=== PATIENT | male | born 1960 | race Asian ===

== ENCOUNTER 2021-11-08 17:19 | Inpatient (IN) | payer MEDICARE, MEDICAID ==
[~2021-11-08] VITALS: Ht 167.6 cm; Wt 79.4 kg
[2021-11-08 20:06] LABS: BASOPHILS % (AUTO) 0.1 % (0.0-2.0); EOSINOPHILS % (AUTO) 0.1 % (1.0-6.0); HEMATOCRIT 38.6 % (41-53); HEMOGLOBIN 12.8 g/dL (13.5-17.5); LYMPHOCYTES # (AUTO) 0.4 K/uL (1.0-4.8); LYMPHOCYTES % (AUTO) 4.3 % (22.0-44.0); MEAN CORPUSCULAR HEMOGLOBIN 27.2 pg (26.0-34.0); MEAN CORPUSCULAR HGB CONC 33.2 G/dL (31.0-37.0); MEAN CORPUSCULAR VOLUME 82 fL (80-100); MONOCYTES # (AUTO) 0.6 K/uL (0.1-1.0); MONOCYTES % (AUTO) 6.2 % (2.0-9.0); NEUTROPHILS # (AUTO) 8.4 K/uL (1.8-7.7); PLATELET COUNT (AUTO) 202 K/uL (150-450); RED CELL DISTRIBUTION WIDTH 18.8 % (11.5-14.5)
[2021-11-08 20:16] LABS: NEUTROPHILS % (AUTO) 89.3 % (40.0-70.0)
[2021-11-08 20:18] LABS: CALCIUM, TOTAL 8.3 mg/dL (8.8-10.5); CREATININE 9.48 mg/dL (0.60-1.30); POTASSIUM 5.5 mmol/L (3.5-5.1)
[2021-11-08 20:24] LABS: INFLUENZA TYPE A NEGATIVE FOR TYPE A (NEGATIVE); INFLUENZA TYPE B NEGATIVE FOR TYPE B (NEGATIVE)
[2021-11-08 20:26] LABS: LACTIC ACID 1.5 mmol/L (0.4-2.0)
[2021-11-08] MEDS ORDERED: ONDANSETRON HCL 4 MG/2 ML VIAL IVP ONE (20:30)
[2021-11-08 20:36] LABS: D-DIMER 1.05 mg/L FEU (0.00-0.50)
[2021-11-08] MEDS ORDERED: ACETAMINOPHEN 1000 MG/ISO-OSM 100 ML IV ONE (20:45)
[2021-11-08 20:58] LABS: ALBUMIN 4.3 g/dL (3.4-5.0); BILIRUBIN,TOTAL 0.5 mg/dL (0.1-1.0); C-REACTIVE PROTEIN QUANT 6.09 mg/dL (0.00-0.30); TOTAL PROTEIN, SERUM 10.2 g/dL (6.4-8.2)
[2021-11-08] MEDS ORDERED: SODIUM POLYSTYRENE SULFONATE 15 GM/60 ML SUSPENSION BOTTLE PO ONE (21:45)
[2021-11-08] MEDS ORDERED: SODIUM CHLORIDE 0.9% 500 ML IV ONE (22:45)
[2021-11-09] VITALS: BP 95/51
[2021-11-09] MEDS ORDERED: IOHEXOL 350 MG/ML 100 ML VIAL ONE (00:14)
[2021-11-09] MEDS: HEPARIN SODIUM,PORCINE 5,000 UNITS/ML VIAL SQ SCH ×4 (02:05→23:43)
[2021-11-09] MEDS: ONDANSETRON HCL 4 MG/2 ML VIAL IVP PRN ×4 (02:26→23:44)
[2021-11-09] MEDS ORDERED: INFLUENZA VIRUS VACCINE QVS 2021-22 (6MO+)/PF 60 MCG/0.5 ML SYRINGE IM. ONE (03:30)
[2021-11-09 04:00] VITALS: BP 101/53
[2021-11-09 07:51] LABS: BASOPHILS % (AUTO) 0.3 % (0.0-2.0); EOSINOPHILS % (AUTO) 0 % (1.0-6.0); HEMATOCRIT 32.5 % (41-53); HEMOGLOBIN 10.9 g/dL (13.5-17.5); LYMPHOCYTES # (AUTO) 0.8 K/uL (1.0-4.8); LYMPHOCYTES % (AUTO) 10.2 % (22.0-44.0); MEAN CORPUSCULAR HGB CONC 33.5 G/dL (31.0-37.0); MEAN CORPUSCULAR VOLUME 83 fL (80-100); MONOCYTES # (AUTO) 0.7 K/uL (0.1-1.0); MONOCYTES % (AUTO) 9.6 % (2.0-9.0); NEUTROPHILS % (AUTO) 79.9 % (40.0-70.0); PLATELET COUNT (AUTO) 176 K/uL (150-450); RED CELL DISTRIBUTION WIDTH 18.8 % (11.5-14.5)
[2021-11-09 08:00] VITALS: BP 104/68
[2021-11-09 08:02] LABS: CREATININE 11.13 mg/dL (0.60-1.30); MAGNESIUM 2.3 mg/dL (1.80-2.40); POTASSIUM 4.7 mmol/L (3.5-5.1)
[2021-11-09] MEDS: ACETAMINOPHEN 325 MG TABLET PO PRN ×3 (10:40→20:42)
[2021-11-09 12:00] VITALS: BP 115/65
[2021-11-09] MEDS ORDERED: ALBUTEROL SULFATE HFA 90 MCG/PUFF 8 GM INHALER IH PRN (15:00)
[2021-11-09 15:29] VITALS: BP 122/71
[2021-11-09] MEDS ORDERED: REMDESIVIR 200 MG in SODIUM CHLORIDE 0.9% 250 ML IV ONE (17:00)
[2021-11-09] MEDS ORDERED: SODIUM CHLORIDE 0.9% 250 ML IV ONE (17:24)
[2021-11-09 19:59] VITALS: BP 125/70
[2021-11-09] MEDS: ALBUTEROL SULFATE HFA 90 MCG/PUFF 8 GM INHALER IH SCH (20:42)
[2021-11-09] MEDS: DOCUSATE SODIUM 100 MG/10 ML LIQUID UDCUP PO SCH (20:43)
[2021-11-09] MEDS ORDERED: SIMETHICONE 80 MG CHEWABLE TABLET CHEW ONE (21:15)
[2021-11-10] VITALS (14 sets, daily range): BP systolic 98–169; BP diastolic 55–99
[2021-11-10] MEDS: ACETAMINOPHEN 325 MG TABLET PO PRN ×2 (05:54→17:39)
[2021-11-10 07:30] LABS: ALBUMIN 3.3 g/dL (3.4-5.0); BILIRUBIN,TOTAL 0.4 mg/dL (0.1-1.0); C-REACTIVE PROTEIN QUANT 8.34 mg/dL (0.00-0.30); CALCIUM, TOTAL 6.6 mg/dL (8.8-10.5); CREATININE 13.29 mg/dL (0.60-1.30); POTASSIUM 5.2 mmol/L (3.5-5.1); TOTAL PROTEIN, SERUM 7.8 g/dL (6.4-8.2)
[2021-11-10] MEDS: DOCUSATE SODIUM 100 MG/10 ML LIQUID UDCUP PO SCH ×2 (09:46→20:56)
[2021-11-10] MEDS: HEPARIN SODIUM,PORCINE 5,000 UNITS/ML VIAL SQ SCH ×2 (09:48→17:35)
[2021-11-10] MEDS: ALBUTEROL SULFATE HFA 90 MCG/PUFF 8 GM INHALER IH SCH ×2 (09:52→20:56)
[2021-11-10] MEDS ORDERED: SODIUM CHLORIDE 0.9% 1,000 ML ONE (14:47)
[2021-11-10] MEDS: REMDESIVIR 100 MG in SODIUM CHLORIDE 0.9% 250 ML IV SCH (17:34)
[2021-11-10] MEDS: VITAMIN B COMP/VIT C/FOLIC ACID CAPSULE PO SCH (17:35)
[2021-11-10] MEDS ORDERED: IOHEXOL 350 MG/ML 100 ML VIAL ONE (20:17)
[2021-11-11] MEDS: HEPARIN SODIUM,PORCINE 5,000 UNITS/ML VIAL SQ SCH ×4 (00:18→23:15)
[2021-11-11 00:21] VITALS: BP 123/74
[2021-11-11 04:46] VITALS: BP 126/47
[2021-11-11 08:07] LABS: ALBUMIN 3.1 g/dL (3.4-5.0); BILIRUBIN,TOTAL 0.3 mg/dL (0.1-1.0); CALCIUM, TOTAL 7.4 mg/dL (8.8-10.5); CREATININE 9.05 mg/dL (0.60-1.30); POTASSIUM 5.1 mmol/L (3.5-5.1); TOTAL PROTEIN, SERUM 7.7 g/dL (6.4-8.2)
[2021-11-11 08:31] VITALS: BP 138/73
[2021-11-11] MEDS: ACETAMINOPHEN 325 MG TABLET PO PRN (08:41)
[2021-11-11] MEDS: VITAMIN B COMP/VIT C/FOLIC ACID CAPSULE PO SCH (08:41)
[2021-11-11] MEDS: DOCUSATE SODIUM 100 MG/10 ML LIQUID UDCUP PO SCH ×2 (08:41→20:00)
[2021-11-11] MEDS: ALBUTEROL SULFATE HFA 90 MCG/PUFF 8 GM INHALER IH SCH ×2 (09:00→20:01)
[2021-11-11 12:00] VITALS: BP 113/66
[2021-11-11] MEDS ORDERED: SODIUM ZIRCONIUM CYCLOSILICATE 5 GM POWDER PACKET PO ONE (12:15)
[2021-11-11] MEDS: AZITHROMYCIN 500 MG TABLET PO SCH (12:31)
[2021-11-11] MEDS: CefTRIAXone 1 GM/DEXTROSE 50 ML IV SCH (12:31)
[2021-11-11 16:33] VITALS: BP 126/70
[2021-11-11] MEDS: REMDESIVIR 100 MG in SODIUM CHLORIDE 0.9% 250 ML IV SCH (17:21)
[2021-11-11 20:00] VITALS: BP 144/77
[2021-11-12 01:13] VITALS: BP 137/78
[2021-11-12 04:28] VITALS: BP 136/73
[2021-11-12 07:04] LABS: BILIRUBIN,TOTAL 0.3 mg/dL (0.1-1.0); C-REACTIVE PROTEIN QUANT 6.81 mg/dL (0.00-0.30); CALCIUM, TOTAL 7.2 mg/dL (8.8-10.5); CREATININE 11.91 mg/dL (0.60-1.30); MAGNESIUM 2.3 mg/dL (1.80-2.40); PHOSPHORUS 8.7 mg/dL (2.5-4.9); POTASSIUM 5.3 mmol/L (3.5-5.1); TOTAL PROTEIN, SERUM 7.2 g/dL (6.4-8.2)
[2021-11-12 08:00] VITALS: BP 144/73
[2021-11-12] MEDS: HEPARIN SODIUM,PORCINE 5,000 UNITS/ML VIAL SQ SCH ×2 (08:00→16:00)
[2021-11-12] MEDS: VITAMIN B COMP/VIT C/FOLIC ACID CAPSULE PO SCH (09:05)
[2021-11-12] MEDS: AZITHROMYCIN 500 MG TABLET PO SCH (09:06)
[2021-11-12] MEDS: DOCUSATE SODIUM 100 MG/10 ML LIQUID UDCUP PO SCH ×2 (09:07→20:15)
[2021-11-12] MEDS: ALBUTEROL SULFATE HFA 90 MCG/PUFF 8 GM INHALER IH SCH ×2 (09:07→20:14)
[2021-11-12] MEDS: EPOETIN ALFA 10,000 UNITS/ML VIAL SQ SCH (09:09)
[2021-11-12] MEDS ORDERED: SODIUM ZIRCONIUM CYCLOSILICATE 5 GM POWDER PACKET PO ONE (09:45)
[2021-11-12] MEDS: CefTRIAXone 1 GM/DEXTROSE 50 ML IV SCH (11:17)
[2021-11-12 12:00] VITALS: BP 135/78
[2021-11-12 16:00] VITALS: BP 159/83
[2021-11-12] MEDS: REMDESIVIR 100 MG in SODIUM CHLORIDE 0.9% 250 ML IV SCH (18:40)
[2021-11-12 20:00] VITALS: BP 144/80
[2021-11-13] VITALS (15 sets, daily range): BP systolic 122–163; BP diastolic 68–88
[2021-11-13 07:32] LABS: BILIRUBIN,TOTAL 0.3 mg/dL (0.1-1.0); CALCIUM, TOTAL 7.3 mg/dL (8.8-10.5); CREATININE 13.85 mg/dL (0.60-1.30); POTASSIUM 5.8 mmol/L (3.5-5.1); TOTAL PROTEIN, SERUM 7.2 g/dL (6.4-8.2)
[2021-11-13] MEDS: HEPARIN SODIUM,PORCINE 5,000 UNITS/ML VIAL SQ SCH ×3 (08:00→15:57)
[2021-11-13] MEDS: DOCUSATE SODIUM 100 MG/10 ML LIQUID UDCUP PO SCH ×2 (09:00→20:40)
[2021-11-13] MEDS: ALBUTEROL SULFATE HFA 90 MCG/PUFF 8 GM INHALER IH SCH ×2 (09:00→20:41)
[2021-11-13] MEDS: CefTRIAXone 1 GM/DEXTROSE 50 ML IV SCH (13:31)
[2021-11-13] MEDS ORDERED: ALBU8HFA IH (15:14)
[2021-11-13] MEDS ORDERED: B CO1CAP6 PO (15:14)
[2021-11-13] MEDS ORDERED: DOXY-354 PO (15:14)
[2021-11-13] MEDS: DOXYCYCLINE HYCLATE 100 MG TABLET PO SCH ×2 (15:56→20:40)
[2021-11-13] MEDS: VITAMIN B COMP/VIT C/FOLIC ACID CAPSULE PO SCH (15:56)
[2021-11-13] MEDS ORDERED: SODIUM CHLORIDE 0.9% 250 ML IV ONE (16:40)
[2021-11-13] MEDS: REMDESIVIR 100 MG in SODIUM CHLORIDE 0.9% 250 ML IV SCH (18:01)
[2021-11-14] MEDS: HEPARIN SODIUM,PORCINE 5,000 UNITS/ML VIAL SQ SCH ×2 (00:16→08:02)
[2021-11-14 00:38] VITALS: BP 134/74
[2021-11-14] MEDS: ACETAMINOPHEN 325 MG TABLET PO PRN (00:46)
[2021-11-14 04:52] VITALS: BP 125/72
[2021-11-14 07:35] LABS: CALCIUM, TOTAL 7.8 mg/dL (8.8-10.5); CREATININE 9.67 mg/dL (0.60-1.30); POTASSIUM 4.6 mmol/L (3.5-5.1)
[2021-11-14 07:55] VITALS: BP 133/85
[2021-11-14] MEDS: DOXYCYCLINE HYCLATE 100 MG TABLET PO SCH (08:02)
[2021-11-14] MEDS: VITAMIN B COMP/VIT C/FOLIC ACID CAPSULE PO SCH (08:02)
[2021-11-14] MEDS: DOCUSATE SODIUM 100 MG/10 ML LIQUID UDCUP PO SCH (08:02)
[2021-11-14] MEDS: EPOETIN ALFA 10,000 UNITS/ML VIAL SQ SCH ×2 (08:03→09:13)
[2021-11-14] MEDS: ALBUTEROL SULFATE HFA 90 MCG/PUFF 8 GM INHALER IH SCH (08:04)
== END 2021-11-14 10:15 | disposition home or self-care (01) | DRG 871 ==
LOC: EMS 17:28 → 5N 21:34 → 6N 21:52
PROVIDERS: ADMIT Internal Medicine; ATTEND Internal Medicine
PROC: XW033E5 Introduction of Remdesivir Anti-infective into Peripheral Vein, Percutaneous Approach, New Technology Group 5 (ICD-10-PCS; principal; 2021-11-09)
PROC: 5A1D70Z Performance of Urinary Filtration, Intermittent, Less than 6 Hours Per Day (ICD-10-PCS; 2021-11-10)
PROC: 5A1D70Z Performance of Urinary Filtration, Intermittent, Less than 6 Hours Per Day (ICD-10-PCS; 2021-11-13)
DX: A41.9 Sepsis, unspecified organism (principal); U07.1 COVID-19; J12.82 Pneumonia due to coronavirus disease 2019; N18.6 End stage renal disease; D64.9 Anemia, unspecified; D72.810 Lymphocytopenia; E87.5 Hyperkalemia; N28.9 Disorder of kidney and ureter, unspecified; M54.9 Dorsalgia, unspecified; R79.82 Elevated C-reactive protein (CRP); R79.89 Other specified abnormal findings of blood chemistry; J45.909 Unspecified asthma, uncomplicated; K59.00 Constipation, unspecified; Z28.21 Immunization not carried out because of patient refusal; Z87.891 Personal history of nicotine dependence; Z99.2 Dependence on renal dialysis; Z91.013 Allergy to seafood
CPT/HCPCS: 71045; 71275; 74177; 80048; 80053; 82550; 82728; 83605; 83615; 83690; 83735; 83880; 84100; 84145; 84484; 85025; 85379; 85384; 85610; 85730; 86140; 87040; 87340; 87804; 90935; 93005; 99285; J0131; J0696; J0885; J1644; J2405; J3535; J7030; J7050; Q9967; 36415-L1; 36415-TC

== ENCOUNTER 2022-04-15 00:49 | Emergency (ER) | payer OTHER, MEDICAID ==
[~2022-04-15] VITALS: Ht 167.6 cm; Wt 84.1 kg
[~2022-04-15 00:49] MED LIST: ALBU8HFA IH; B CO1CAP6 PO; DOXY-354 PO
[2022-04-15] MEDS ORDERED: IBUP-2070 PO (01:07)
[2022-04-15] MEDS ORDERED: IBUPROFEN 600 MG TABLET PO ONE (01:15)
[2022-04-15 02:05] VITALS: BP 129/75
== END 2022-04-15 02:15 | disposition home or self-care (01) ==
LOC: EMS 00:49
DX: M25.531 Pain in right wrist (principal); J45.909 Unspecified asthma, uncomplicated; N18.6 End stage renal disease; Z99.2 Dependence on renal dialysis
CPT/HCPCS: 99282; Z7502; Z7610

== ENCOUNTER 2022-08-18 22:55 | Emergency (ER) | payer OTHER, MEDICAID ==
[~2022-08-18] VITALS: Ht 168.9 cm; Wt 81.8 kg
[~2022-08-18 22:55] MED LIST changes: -DOXY-354 PO; +IBUP-2070 PO
[2022-08-19] MEDS ORDERED: IBUP-2070 PO (00:54)
[2022-08-19] MEDS ORDERED: IBUPROFEN 600 MG TABLET PO ONE (01:45)
[2022-08-19 02:04] VITALS: BP 132/84
== END 2022-08-19 02:04 | disposition home or self-care (01) ==
LOC: EMS 22:56
DX: M10.9 Gout, unspecified (principal); M19.90 Unspecified osteoarthritis, unspecified site; J45.909 Unspecified asthma, uncomplicated; Z87.891 Personal history of nicotine dependence; Z91.013 Allergy to seafood; Z99.2 Dependence on renal dialysis
CPT/HCPCS: 99283

== ENCOUNTER 2024-04-09 02:32 | Emergency (ER) | payer MEDICAID, OTHER ==
[~2024-04-09] VITALS: Ht 167.6 cm; Wt 79.5 kg
[2024-04-09 02:34] VITALS: BP 93/53; PULSE 103; RESP 16; TEMP 97.6
== END 2024-04-09 03:47 | disposition left against medical advice (07) ==
LOC: EMS 02:32
DX: R22.31 Localized swelling, mass and lump, right upper limb (principal); Z53.21 Procedure and treatment not carried out due to patient leaving prior to being seen by health care provider

== ENCOUNTER 2024-11-01 03:13 | Inpatient (IN) | payer MEDICARE, OTHER ==
[~2024-11-01] VITALS: Ht 167.6 cm; Wt 72.2 kg
[2024-11-01] VITALS (15 sets, daily range): BP systolic 117–173; BP diastolic 74–104; PULSE 70–100; RESP 18–20; TEMP 97.4–98.4; O2SAT 95–100
[2024-11-01 05:33] LABS: BASOPHILS % (AUTO) 0.5 % (0.0-2.0); EOSINOPHILS % (AUTO) 3.2 % (1.0-6.0); HEMATOCRIT 30.1 % (41-53); HEMOGLOBIN 9.6 g/dL (13.5-17.5); LYMPHOCYTES # (AUTO) 0.3 K/uL (1.0-4.8); LYMPHOCYTES % (AUTO) 3.2 % (22.0-44.0); MEAN CORPUSCULAR VOLUME 88 fL (80-100); MONOCYTES # (AUTO) 0.3 K/uL (0.1-1.0); NEUTROPHILS # (AUTO) 9.3 K/uL (1.8-7.7); PLATELET COUNT (AUTO) 258 K/uL (150-450); RED BLOOD CELL COUNT(AUTO) 3.44 MIL/uL (4.50-5.90); RED CELL DISTRIBUTION WIDTH 21.2 % (11.5-14.5); WHITE BLOOD COUNT (AUTO) 10.3 K/uL (4.5-11.0)
[2024-11-01 05:34] LABS: NEUTROPHILS % (AUTO) 90.1 % (40.0-70.0)
[2024-11-01] MEDS: IPRATROPIUM BROMIDE 0.5 MG/2.5 ML NEB SOLUTION NEB ONE ×2 (05:34→11:15)
[2024-11-01] MEDS: ALBUTEROL SULFATE 2.5 MG/0.5 ML NEB SOLUTION NEB ONE ×2 (05:34→11:15)
[2024-11-01 05:39] LABS: ANION GAP 11 mmol/L (8-16); CARBON DIOXIDE 30 mmol/L (22-29); CHLORIDE 102 mmol/L (98-107); CREATININE 9.83 mg/dL (0.60-1.30); GLOMERULAR FILTR. RATE CALC 5 mL/min (>60); GLUCOSE,RANDOM 104 mg/dL (70-110); POTASSIUM 5.1 mmol/L (3.5-5.1); SODIUM SERUM 143 mmol/L (136-145); UREA NITROGEN, BLOOD 58 mg/dL (7-18)
[2024-11-01 05:44] LABS: PROTHROMBIN TIME 10.7 SEC (9.4-11.6)
[2024-11-01 05:49] LABS: CREATINE KINASE, TOTAL ONLY 105 U/L (39-308)
[2024-11-01 05:53] LABS: TROPONIN I-HIGH SENSITIVITY 79 ng/L (<76)
[2024-11-01] MEDS: MethylPREDNISolone SOD SUCC 125 MG/2 ML VIAL IVP ONE (06:03)
[2024-11-01 06:16] LABS: B-TYPE NATRIURETIC PEPTIDE 1990 pg/mL (0-100)
[2024-11-01] MEDS: NITROGLYCERIN 2% (1 GM=INCH) OINTMENT PACKET TP ONE (06:34)
[2024-11-01] MEDS ORDERED: ALBU18HF12 IH (16:09)
[2024-11-01] MEDS ORDERED: FLUT12HF PUFF (16:09)
[2024-11-01] MEDS ORDERED: FURO40TA5 PO (16:09)
[2024-11-01] MEDS ORDERED: APIX2.5T PO (16:09)
[2024-11-01] MEDS ORDERED: MONT-40 PO (16:09)
[2024-11-01] MEDS ORDERED: AMIO100T4 PO (16:09)
[2024-11-01] MEDS ORDERED: MAGNESIUM HYDROXIDE SUSPENSION 30 ML UDCUP PO PRN (16:15)
[2024-11-01] MEDS ORDERED: IPRATROPIUM BROMIDE 0.5 MG/2.5 ML NEB SOLUTION NEB PRN (16:15)
[2024-11-01] MEDS ORDERED: ZOLPIDEM TARTRATE 5 MG TABLET PO PRN (16:15)
[2024-11-01] MEDS ORDERED: ALBUTEROL SULFATE 2.5 MG/0.5 ML NEB SOLUTION NEB PRN (16:15)
[2024-11-01] MEDS ORDERED: BISACODYL 10 MG RECTAL RECTAL SUPPOSITORY PR PRN (16:15)
[2024-11-01] MEDS ORDERED: MORPHINE SULFATE 2 MG/ML SYRINGE IVP PRN (16:15)
[2024-11-01] MEDS ORDERED: ACETAMINOPHEN 325 MG TABLET PO PRN (16:15)
[2024-11-01] MEDS ORDERED: HYDROCODONE/ACETAMINOPHEN 5-325 MG TABLET PO PRN (16:15)
[2024-11-01] MEDS ORDERED: ONDANSETRON HCL 4 MG/2 ML VIAL IVP PRN (16:15)
[2024-11-01] MEDS ORDERED: AMIO200T68 PO (16:20)
[2024-11-01 17:18] LABS: TROPONIN I-HIGH SENSITIVITY 59 ng/L (<76)
[2024-11-01] MEDS ORDERED: SODIUM CHLORIDE 0.9% 500 ML IV ONE (17:24)
[2024-11-01] MEDS: CefTRIAXone 1 GM/DEXTROSE 50 ML IV SCH (17:43)
[2024-11-01] MEDS: APIXABAN 2.5 MG TABLET PO SCH (20:12)
[2024-11-01] MEDS: MONTELUKAST SODIUM 10 MG TABLET PO SCH (20:12)
[2024-11-01] MEDS: AMIODARONE HCL 200 MG TABLET PO SCH (20:13)
[2024-11-01] MEDS: HEPARIN SODIUM,PORCINE 5,000 UNITS/ML VIAL SQ SCH (23:28)
[2024-11-02 00:16] VITALS: BP 151/82; PULSE 96; RESP 19; TEMP 98.3; O2SAT 97
[2024-11-02 05:01] VITALS: BP 133/88; PULSE 94; RESP 16; TEMP 97.9; O2SAT 99
[2024-11-02 07:47] VITALS: BP 142/82; PULSE 86; RESP 17; TEMP 97.5; O2SAT 97
[2024-11-02] MEDS: PANTOPRAZOLE SODIUM 40 MG DR TABLET PO SCH (08:59)
[2024-11-02] MEDS: FUROSEMIDE 40 MG TABLET PO SCH (08:59)
[2024-11-02 09:00] VITALS: BP 137/79; PULSE 91; RESP 18; TEMP 98.1; O2SAT 99
[2024-11-02 12:00] VITALS: BP 137/79; PULSE 91; RESP 18; TEMP 98.1; O2SAT 99
[2024-11-02] MEDS ORDERED: AMOX-457 PO (13:00)
== END 2024-11-02 14:15 | disposition home or self-care (01) | DRG 190 ==
LOC: EMS 03:14 → EDH 07:48 → 5S 15:18
PROVIDERS: ADMIT Internal Medicine; ATTEND Internal Medicine
PROC: 5A1D70Z Performance of Urinary Filtration, Intermittent, Less than 6 Hours Per Day (ICD-10-PCS; principal; 2024-11-01)
DX: J44.1 Chronic obstructive pulmonary disease with (acute) exacerbation (principal); N18.6 End stage renal disease; R07.89 Other chest pain; D64.9 Anemia, unspecified; I50.9 Heart failure, unspecified; M10.9 Gout, unspecified; Z87.891 Personal history of nicotine dependence; Z99.2 Dependence on renal dialysis
CPT/HCPCS: 71045; 80048; 82550; 83880; 84484; 85025; 85610; 85730; 87340; 90935; 93005; 93306; 94640; 99285; J0696; J1644; J2919; J7040; 36415-L1; 36415-TC; J7613

== ENCOUNTER 2025-05-26 21:24 | Emergency (ER) | payer MEDICARE, OTHER ==
[~2025-05-26] VITALS: Ht 167.6 cm; Wt 61.4 kg
[~2025-05-26 21:24] MED LIST changes: +ALBU18HF12 IH; -ALBU8HFA IH; +AMIO100T4 PO; +ATOR40TA71 PO; -B CO1CAP6 PO; +CLOP75TA32 PO; +FLUT12HF IH; +FURO40TA5 PO; -IBUP-2070 PO; +MONT-40 PO; +SACU1TAB PO; +SODI10PO3 PO
[2025-05-26 21:26] VITALS: TEMP 97.9
[2025-05-26 22:45] VITALS: BP 145/76; PULSE 88; RESP 16; O2SAT 100
== END 2025-05-27 03:26 | disposition home or self-care (01) ==
LOC: EMS 21:24
DX: T82.9XXA Unspecified complication of cardiac and vascular prosthetic device, implant and graft, initial encounter (principal); N18.9 Chronic kidney disease, unspecified; J45.909 Unspecified asthma, uncomplicated; M19.90 Unspecified osteoarthritis, unspecified site; Z99.2 Dependence on renal dialysis; Z79.02 Long term (current) use of antithrombotics/antiplatelets; Z79.51 Long term (current) use of inhaled steroids; Z79.899 Other long term (current) drug therapy; M10.9 Gout, unspecified; Y83.2 Surgical operation with anastomosis, bypass or graft as the cause of abnormal reaction of the patient, or of later complication, without mention of misadventure at the time of the procedure
CPT/HCPCS: 99282; Z7502